=== PATIENT | female | born 1970 | race Caucasian/White ===

== ENCOUNTER 2018-12-15 20:40 | Emergency (ER) | payer SELFPAY ==
[~2018-12-15] VITALS: Ht 175.3 cm; Wt 63.0 kg
--- NOTE | 2018-12-15 20:51 | NUR ---
PT BROUGHT IN BY [place] WITH A LEGAL HOLD IN PLACE BY [employer]. POLICE WERE CALLED WHEN PT WAS THROWING GLASS AND FRIGHTENING [employer]. PT WAS RECIEVED IN 4 PT RESTAINTS AND PLACED IN 4 PT RESTAINTS BY SECURITY STAFF.
--- NOTE | 2018-12-15 21:05 | NUR ---
BELONGINGS PLACED IN ONE PT BELONGINGS BAG AND LOCKED IN CABINET
[2018-12-15] MEDS ORDERED: LORazepam 1MG TABLET ONE (21:37)
[2018-12-15 21:47] LABS: BASOPHILS # (AUTO) 0.09 x10^3/uL (0-0.1); BASOPHILS % (AUTO) 1 % (0-1); EOSINOPHILS # (AUTO) 0.13 x10^3/uL (0-0.4); EOSINOPHILS % (AUTO) 2 % (1-7); LYMPHOCYTES # (AUTO) 1.31 x10^3/uL (1-3.4); LYMPHOCYTES % (AUTO) 18 % (22-44); MD NO; MEAN CORPUSCULAR HEMOGLOBIN 30.9 pg (27.0-34.8); MEAN CORPUSCULAR HGB CONC 32.9 g/dL (32.4-35.8); MEAN CORPUSCULAR VOLUME 93.8 fL (80-100); MEAN PLATELET VOLUME 6.8 fL (7.4-10.4); MONOCYTES # (AUTO) 0.41 x10^3/uL (0.2-0.8); MONOCYTES % (AUTO) 6 % (2-9); NEUTROPHILS # (AUTO) 5.32 x10^3/uL (1.8-6.8); NEUTROPHILS % (AUTO) 73 % (42-75); PLATELET COUNT 252 x10^3/uL (130-400); RED BLOOD COUNT 4.22 x10^6/uL (3.82-5.3); RED CELL DISTRIBUTION WIDTH 13.9 % (9.6-15.2)
[2018-12-15 21:58] LABS: ALANINE AMINOTRANSFERASE 23 U/L (12-78); ALBUMIN 4.1 g/dL (3.4-5.0); ANION GAP 8 mmol/L (5-15); CALCIUM 9.5 mg/dL (8.5-10.1); CHLORIDE 107 mmol/L (98-107); SALICYLATE LEVEL 2.9 mg/dL (2.8-20.0)
[2018-12-15] MEDS ORDERED: ZIPRASIDONE 40MG CAPSULE PO ONE (22:00)
[2018-12-15] MEDS ORDERED: LORazepam 1MG TABLET PO ONE (22:00)
[2018-12-15 22:03] LABS: ALKALINE PHOSPHATASE 80 U/L (45-117); BILIRUBIN,TOTAL 0.3 mg/dL (0.2-1.0); TOTAL PROTEIN 6.9 g/dL (6.4-8.2)
[2018-12-15] MEDS ORDERED: ZIPRASIDONE 20MG CAPSULE ONE (22:13)
--- NOTE | 2018-12-15 22:22 | NUR ---
Jordan bean in [facility] - 12/15/18 at 2223 by GRAEME PT MEDICATED FOR AGGITATION PER EMABuck
--- NOTE | 2018-12-15 22:22 | NUR ---
PT MEDICATED FOR AGGITATION PER EMAR
--- NOTE | 2018-12-16 00:09 | NUR ---
PT SLEEPING ON BETH
--- NOTE | 2018-12-16 00:45 | NUR ---
restraints discontinued by security staff
--- NOTE | 2018-12-16 02:15 | NUR ---
er at bedside
--- NOTE | 2018-12-16 02:24 | NUR ---
FAXED PACKET TO [facility].
[2018-12-16] MEDS ORDERED: LORazepam 1MG TABLET PO PRN (02:30)
--- NOTE | 2018-12-16 03:15 | NUR ---
PT SLEEPING ON GURNEY. REGULAR UNLABORED RESPIRATIONS. SITTER AT BEDSIDE
--- NOTE | 2018-12-16 04:27 | NUR ---
PT SLEEPING ON GURNEY. REGULAR UNLABORED RESPIRATIONS.
--- NOTE | 2018-12-16 04:56 | NUR ---
PT SLEEPING ON GURNEY. REGULAR UNLABORED RESPIRATIONS.
[2018-12-16] MEDS: PLEASE ENTER ALLERGIES MC SCH ×3 (04:57→13:34)
--- NOTE | 2018-12-16 06:46 | NUR ---
PT SLEEPING ON GURNEY. REGULAR UNLABORED RESPIRATIONS. SITTER AT BEDSIDE
--- NOTE | 2018-12-16 07:00 | NUR ---
SB[facility] BEDSIDE HANDOFF REPORT RECIEVED FROM ADDISON REYES. ASSUMING CARE OF PT.
--- NOTE | 2018-12-16 07:06 | NUR ---
REPORT GIVEN TO ADDISON WHYTE
[2018-12-16] MEDS ORDERED: ZIPRASIDONE 20MG CAPSULE ONE (08:42)
[2018-12-16] MEDS ORDERED: ZIPRASIDONE 20MG CAPSULE PO SCH (09:00)
[2018-12-16 10:34] VITALS: BP 105/71
--- NOTE | 2018-12-16 11:33 | NUR ---
Pt resting w/ no complaints, vss, lunch tray and hospital bed ordered.
--- NOTE | 2018-12-16 12:10 | NUR ---
LUNCH RN: PT GIVEN MEAL TRAY WITH SI PRECUATIONS. PT HAS GOOD CAP REFILL AND EQUAL CHEST RISE. NADN. SITTER OUTSIDE ROOM FOR CONTINOUS MONITORING.
[2018-12-16] MEDS ORDERED: [UNRECOGNIZED DRUG - REMARK] IM (12:47)
--- NOTE | 2018-12-16 13:29 | NUR ---
Pt resting on gurney w/ eyes closed, respirations even and unlabored, no apparent distress noted, meal tray provided, sitter at bedside.
[2018-12-16] MEDS ORDERED: LORazepam 1MG TABLET ONE (14:55)
--- NOTE | 2018-12-16 14:57 | NUR ---
Pt noted to have increased restlessness, anxiety. PRN ativan administered, will monitor for effect.
[2018-12-16] MEDS ORDERED: PALI234D IM (15:12)
[2018-12-16] MEDS ORDERED: LANO454C2 TP (15:13)
[2018-12-16] MEDS ORDERED: LIDO700A20 TD (15:14)
--- NOTE | 2018-12-16 15:14 | NUR ---
[facility] called and [facility] obtained and med rec updated.
[2018-12-16 17:08] LABS: AMPHETAMINE SCREEN, URINE Positive (Negative); BARBITURATE SCREEN, URINE Negative (Negative); BENZODIAZEPINE SCREEN, URINE Negative (Negative); COCAINE SCREEN, URINE Negative (Negative); METHADONE SCREEN, URINE Negative (Negative); OPIATE SCREEN, URINE Negative (Negative)
[2018-12-16 17:10] LABS: CANNABINOID SCREEN, URINE Positive (Negative)
[2018-12-16] MEDS ORDERED: PALIPERIDONE PALMITATE 234 MG/1.5 ML IM ONE (17:30)
--- NOTE | 2018-12-16 18:27 | NUR ---
Medication administered per MD bright, tolerates well, up self to BR, pending d/c.
--- NOTE | 2018-12-16 18:40 | NUR ---
Patient/Caregiver given discharge instructions and they have confirmed that they understand the instructions. Patient ambulatory with steady gait.
== END 2018-12-16 18:41 | disposition home or self-care (01) ==
LOC: ED 23:52
DX: F15.150 Other stimulant abuse with stimulant-induced psychotic disorder with delusions (principal); F41.9 Anxiety disorder, unspecified
CPT/HCPCS: 36415; 80053; 80307; 84703; 85025; 96372; 99284; J2426